=== PATIENT | male | born 1965 | race Caucasian/White ===

== ENCOUNTER 2018-04-15 16:30 | Emergency (ER) | payer BC ==
[~2018-04-15] VITALS: Ht 182.9 cm; Wt 92.1 kg
[2018-04-15 16:35] VITALS: BP 176/124
[2018-04-15] MEDS ORDERED: methylPREDNISolone SS 125 MG/2 ML VIAL IM ONE (16:55)
[2018-04-15] MEDS ORDERED: diphenhydrAMINE 50 MG/ML VIAL IM ONE (16:55)
[2018-04-15 19:27] VITALS: BP 145/83
== END 2018-04-15 19:26 | disposition home or self-care (01) ==
LOC: MED 16:30
DX: T78.1XXA Other adverse food reactions, not elsewhere classified, initial encounter (principal); E11.9 Type 2 diabetes mellitus without complications; I10 Essential (primary) hypertension; X58.XXXA Exposure to other specified factors, initial encounter
CPT/HCPCS: 96372; 99283; J1200; J2930